=== PATIENT | female | born 1965 | race African-American/Black ===

== ENCOUNTER 2020-10-31 17:21 | Inpatient (IN) | payer MEDICAID, OTHER ==
[~2020-10-31] VITALS: Ht 170.2 cm; Wt 105.7 kg
[2020-10-31] MEDS ORDERED: POTA10TA11 PO (17:41)
[2020-10-31] MEDS ORDERED: AMLO5TAB88 PO (17:41)
[2020-10-31] MEDS ORDERED: TRAZ-251 PO (17:41)
[2020-10-31] MEDS ORDERED: SODIUM CHLORIDE 0.9% 1,000 ML IV ONE (18:00)
[2020-10-31 18:27] LABS: BASOPHILS % 0.8 % (0.0-2.0); EOSINOPHILS % 0.6 % (0.0-5.0); HEMOGLOBIN. 15.9 g/dL (12.0-16.0); LYMPHOCYTES % 37.6 % (20.0-50.0); MEAN CORPUSCULAR HEMOGLOBIN 29.2 pg (28.0-32.0); MEAN CORPUSCULAR VOLUME 82.8 fL (81.0-99.0); MEAN PLATELET VOLUME 7.9 fl (7.4-10.4); MONOCYTES % 9.8 % (2.0-8.0); NEUTROPHILS % 51.2 % (40.0-76.0); PLATELET 320 x1000/uL (130-400); RED BLOOD CELL COUNT 5.44 mill/uL (4.2-5.4); RED CELL DISTRIBUTION WIDTH 16.7 % (11.6-14.6)
[2020-10-31 18:35] LABS: CHLORIDE 94 mEq/L (98-107)
[2020-10-31] MEDS ORDERED: KCL 10MEQ/50ML PREMIX 50 ML IV NR (19:30)
[2020-10-31] MEDS ORDERED: SODIUM CHLORIDE 0.9% 1000ML BAG (SEPSIS BOLUS) IV ONE (19:30)
[2020-10-31] MEDS ORDERED: VANCOMYCIN 1 G PREMIX 200 ML IV NR (19:30)
[2020-10-31] MEDS ORDERED: POTASSIUM CHLORIDE 20MEQ TABLET SR PO NR (19:30)
[2020-10-31] MEDS ORDERED: PIPERACILLIN/TAZ 3.375G PREMIX 50 ML IV ONE (19:30)
[2020-10-31] MEDS ORDERED: PIPERACILLIN/TAZ 3.375G PREMIX 50 ML IV NR (19:45)
[2020-10-31] MEDS ORDERED: SODIUM CHLORIDE 0.9% IV SCH (19:45)
[2020-10-31 20:12] LABS: CLARITY URINE CLEAR (CLEAR); COLOR URINE YELLOW (YELLOW); KETONES URINE TRACE (NEGATIVE); LEUKOCYTE ESTERASE URINE 1+ (NEGATIVE); NITRITE URINE POSITIVE (NEGATIVE); OCCULT BLOOD URINE NEGATIVE (NEGATIVE); PH URINE 7.5 (4.5-8.0); PROTEIN URINE 1+ (NEGATIVE); SPECIFIC GRAVITY URINE 1.012 (1.005-1.030); UROBILINOGEN URINE 0.2 E.U./dL (0.2-1.0)
[2020-10-31 20:13] LABS: INR 1.1; PROTHROMBIN TIME 11.4 sec (9.6-11.0)
[2020-10-31 22:05] VITALS: BP 127/80
[2020-11-01] MEDS: LORAZEPAM 2MG/ML CPJ IV PRN ×2 (00:14→20:44)
[2020-11-01] MEDS: CEFTRIAXONE 1,000 MG in DEXTROSE 5% WATER 50 ML IV SCH (02:03)
[2020-11-01 04:00] VITALS: BP 117/83
[2020-11-01] MEDS ORDERED: INFLUENZA VACCINE 05/PF 0.5 ML SYRINGE IM ONE (06:00)
[2020-11-01 06:27] LABS: BASOPHILS % 0.5 % (0.0-2.0); CHLORIDE 100 mEq/L (98-107); EOSINOPHILS % 2.1 % (0.0-5.0); HEMATOCRIT. 40.1 % (36.0-48.0); HEMOGLOBIN. 13.3 g/dL (12.0-16.0); LYMPHOCYTES % 39.6 % (20.0-50.0); MEAN CORPUSCULAR HEMOGLOBIN 28.3 pg (28.0-32.0); MEAN CORPUSCULAR VOLUME 85.1 fL (81.0-99.0); MEAN PLATELET VOLUME 7.8 fl (7.4-10.4); MONOCYTES % 10.6 % (2.0-8.0); NEUTROPHILS % 47.2 % (40.0-76.0); PLATELET 252 x1000/uL (130-400); RED BLOOD CELL COUNT 4.71 mill/uL (4.2-5.4); RED CELL DISTRIBUTION WIDTH 16.9 % (11.6-14.6)
[2020-11-01] MEDS ORDERED: DEXT 5%/0.45% NACL KCL 40MEQ/L 500 ML IV ONE (06:45)
[2020-11-01] MEDS ORDERED: POTASSIUM CHLORIDE INJ 60 MEQ in DEXT 5% WATER 500 ML IV SCH (07:00)
[2020-11-01 08:00] VITALS: BP 124/78
[2020-11-01] MEDS: AMLODIPINE 5MG TABLET PO SCH (08:44)
[2020-11-01] MEDS ORDERED: CEFTRIAXONE 1 G PREMIX 50 ML IV SCH (09:00)
[2020-11-01 12:00] VITALS: BP 123/85
[2020-11-01] MEDS: POTASSIUM CHLORIDE 20MEQ TABLET SR PO SCH (12:53)
[2020-11-01 16:00] VITALS: BP 120/65
[2020-11-01] MEDS: ENOXAPARIN 30MG/0.3ML SYR SUBCUT SCH (18:49)
[2020-11-01 20:00] VITALS: BP 128/86
[2020-11-01] MEDS: TRAZODONE HCL 50MG TABLET PO SCH (20:43)
[2020-11-02] VITALS: BP 101/73
[2020-11-02] MEDS: CEFTRIAXONE 1,000 MG in DEXTROSE 5% WATER 50 ML IV SCH (01:16)
[2020-11-02 04:00] VITALS: BP 126/84
[2020-11-02] MEDS: ENOXAPARIN 30MG/0.3ML SYR SUBCUT SCH ×2 (05:52→18:01)
[2020-11-02 06:10] LABS: CHLORIDE 101 mEq/L (98-107)
[2020-11-02 08:00] VITALS: BP 118/74
[2020-11-02] MEDS ORDERED: POTASSIUM CHLORIDE INJ 40 MEQ in DEXT 5% WATER 250 ML IV NR (09:00)
[2020-11-02] MEDS: POTASSIUM CHLORIDE 20MEQ TABLET SR PO SCH (09:52)
[2020-11-02] MEDS: AMLODIPINE 5MG TABLET PO SCH (09:52)
[2020-11-02 12:36] VITALS: BP 116/67
[2020-11-02] MEDS ORDERED: LEVO500T89 MT (13:28)
[2020-11-02] MEDS ORDERED: LACT1CAP78 MT (13:28)
[2020-11-02 16:20] VITALS: BP 104/65
[2020-11-02] MEDS: LORAZEPAM 2MG/ML CPJ IV PRN (20:52)
[2020-11-02] MEDS: TRAZODONE HCL 50MG TABLET PO SCH (20:54)
[2020-11-02 23:59] VITALS: BP 98/63
[2020-11-03] MEDS: CEFTRIAXONE 1,000 MG in DEXTROSE 5% WATER 50 ML IV SCH (00:46)
[2020-11-03 04:00] VITALS: BP 93/69
[2020-11-03] MEDS: ENOXAPARIN 30MG/0.3ML SYR SUBCUT SCH ×2 (06:11→17:53)
[2020-11-03 07:59] VITALS: BP 104/68
[2020-11-03] MEDS: AMLODIPINE 5MG TABLET PO SCH (08:15)
[2020-11-03] MEDS: POTASSIUM CHLORIDE 20MEQ TABLET SR PO SCH (08:57)
[2020-11-03 10:15] VITALS: BP 102/68
[2020-11-03 10:19] VITALS: BP 102/68
[2020-11-03 12:00] VITALS: BP 112/64
[2020-11-03 16:00] VITALS: BP 117/72
== END 2020-11-03 18:50 | disposition home or self-care (01) | DRG 720 ==
LOC: ER 17:21 → 6WST 20:06 → EDBEDREQSVC 20:12 → EDBEDREQ 20:12 → EDBEDREQTM 20:12 → ENRESERV 21:09
PROVIDERS: ADMIT Internal Medicine; ATTEND Internal Medicine
DX: A41.9 Sepsis, unspecified organism (principal); E44.1 Mild protein-calorie malnutrition; E87.8 Other disorders of electrolyte and fluid balance, not elsewhere classified; D49.6 Neoplasm of unspecified behavior of brain; E66.9 Obesity, unspecified; E87.6 Hypokalemia; N39.0 Urinary tract infection, site not specified; R19.7 Diarrhea, unspecified; I10 Essential (primary) hypertension; Z79.899 Other long term (current) drug therapy; Z90.49 Acquired absence of other specified parts of digestive tract; Z81.8 Family history of other mental and behavioral disorders; Z68.36 Body mass index [BMI] 36.0-36.9, adult
CPT/HCPCS: 36415; 71045; 80048; 80053; 81003; 82962; 83605; 83735; 84132; 84145; 84484; 85025; 87045; 90686; 93005; 99291; C1893; J0696; J1650; J2060; J2543; J3370; J3480; J7030; J7060

== ENCOUNTER 2020-11-13 09:55 | Inpatient (IN) | payer OTHER ==
[~2020-11-13] VITALS: Ht 167.6 cm; Wt 98.0 kg
[~2020-11-13 09:55] MED LIST: AMLO5TAB88 PO; LACT1CAP78 MT; LEVO500T89 MT; POTA10TA11 PO; TRAZ-251 PO
[2020-11-13 10:55] LABS: BASOPHILS % 1.1 % (0.0-2.0); EOSINOPHILS % 2.6 % (0.0-5.0); HEMATOCRIT. 42.7 % (36.0-48.0); LYMPHOCYTES % 39.2 % (20.0-50.0); MEAN CORPUSCULAR HEMOGLOBIN 28.6 pg (28.0-32.0); MEAN CORPUSCULAR VOLUME 87.4 fL (81.0-99.0); MEAN PLATELET VOLUME 7.2 fl (7.4-10.4); MONOCYTES % 10.8 % (2.0-8.0); NEUTROPHILS % 46.3 % (40.0-76.0); PLATELET 310 x1000/uL (130-400); RED BLOOD CELL COUNT 4.89 mill/uL (4.2-5.4); RED CELL DISTRIBUTION WIDTH 18.5 % (11.6-14.6)
[2020-11-13 11:02] LABS: CHLORIDE 103 mEq/L (98-107)
[2020-11-13 11:06] LABS: ETHANOL BLOOD < 10 mg/dL
[2020-11-13 11:15] LABS: CLARITY URINE TURBID (CLEAR); COLOR URINE DK YELLOW (YELLOW); KETONES URINE 1+ (NEGATIVE); LEUKOCYTE ESTERASE URINE 3+ (NEGATIVE); NITRITE URINE NEGATIVE (NEGATIVE); OCCULT BLOOD URINE NEGATIVE (NEGATIVE); PROTEIN URINE 1+ (NEGATIVE); UROBILINOGEN URINE 0.2 E.U./dL (0.2-1.0)
[2020-11-13 11:56] LABS: *AMPHETAMINES SCREEN URINE NEGATIVE (NEGATIVE); *BARBITURATES SCREEN URINE NEGATIVE (NEGATIVE); *BENZODIAZEPINES SCREEN URINE NEGATIVE (NEGATIVE); *COCAINE SCREEN URINE NEGATIVE (NEGATIVE)
[2020-11-13 11:58] LABS: CANNABINOID URINE SCREEN PRESUMTIVE POSITIVE (NEGATIVE); METHADONE URINE SCREEN NEGATIVE (NEGATIVE); OPIATES URINE SCREEN NEGATIVE (NEGATIVE); PHENCYCLIDINE URINE SCREEN NEGATIVE (NEGATIVE)
[2020-11-13] MEDS ORDERED: CEFTRIAXONE 1 G PREMIX 50 ML IV ONE (13:00)
[2020-11-13] MEDS ORDERED: ACETAMINOPHEN 325MG TABLET PO PRN (14:45)
[2020-11-13] MEDS ORDERED: ONDANSETRON HCL 4MG/2ML INJ IV PRN (14:45)
[2020-11-13] MEDS ORDERED: IPRATROPIUM/ALBUTEROL 0.5-3(2.5)MG/3ML NEB HHN PRN (14:45)
[2020-11-13] MEDS ORDERED: CLONIDINE 0.1MG TABLET PO PRN (14:45)
[2020-11-13] MEDS ORDERED: DIPHENHYDRAMINE 50MG/ML VIAL IV PRN (14:45)
[2020-11-13] MEDS ORDERED: POTASSIUM CHLORIDE INJ 40 MEQ in DEXT 5% WATER 250 ML IV NR (15:30)
[2020-11-13] MEDS: TRAZODONE HCL 50MG TABLET PO SCH (21:21)
[2020-11-13 23:05] VITALS: BP 134/78
[2020-11-14] VITALS: BP 134/78
[2020-11-14 04:00] VITALS: BP 118/85
[2020-11-14 06:56] LABS: BASOPHILS % 0.8 % (0.0-2.0); EOSINOPHILS % 2.8 % (0.0-5.0); HEMATOCRIT. 40.5 % (36.0-48.0); HEMOGLOBIN. 13.5 g/dL (12.0-16.0); LYMPHOCYTES % 41.1 % (20.0-50.0); MEAN CORPUSCULAR HEMOGLOBIN 28.3 pg (28.0-32.0); MEAN CORPUSCULAR VOLUME 85.2 fL (81.0-99.0); MEAN PLATELET VOLUME 7.5 fl (7.4-10.4); MONOCYTES % 10.3 % (2.0-8.0); PLATELET 316 x1000/uL (130-400); RED BLOOD CELL COUNT 4.76 mill/uL (4.2-5.4); RED CELL DISTRIBUTION WIDTH 18.3 % (11.6-14.6)
[2020-11-14 07:17] LABS: CHLORIDE 102 mEq/L (98-107)
[2020-11-14 07:26] LABS: LDL CHOLESTEROL 158 mg/dL (5-100)
[2020-11-14 07:28] LABS: HDL CHOLESTEROL 32 mg/dL (40-59)
[2020-11-14 08:00] VITALS: BP 123/88
[2020-11-14] MEDS: AMLODIPINE 5MG TABLET PO SCH ×4 (09:40→17:21)
[2020-11-14 12:00] VITALS: BP 116/73
[2020-11-14] MEDS ORDERED: NALOXONE HCL 0.4MG/ML VIAL IV PRN (12:00)
[2020-11-14] MEDS ORDERED: IOHEXOL-350 100 ML BOTTLE ONE (14:58)
[2020-11-14] MEDS ORDERED: CEFTRIAXONE 1 G PREMIX 50 ML IV SCH (15:00)
[2020-11-14 16:00] VITALS: BP 129/93
[2020-11-14] MEDS: CEFTRIAXONE 1,000 MG in DEXTROSE 5% WATER 50 ML IV SCH (17:21)
[2020-11-14 20:00] VITALS: BP 120/76
[2020-11-14] MEDS: TRAZODONE HCL 50MG TABLET PO SCH ×2 (20:11→20:13)
[2020-11-14] MEDS: HYDROCODONE/ACETAMINOPHEN 5/325MG TABLET PO PRN (20:19)
[2020-11-15] VITALS: BP 111/70
[2020-11-15 04:00] VITALS: BP 111/76
[2020-11-15 08:00] VITALS: BP 117/82
[2020-11-15] MEDS: AMLODIPINE 5MG TABLET PO SCH ×2 (08:34→16:25)
[2020-11-15] MEDS: HYDROCODONE/ACETAMINOPHEN 5/325MG TABLET PO PRN ×2 (08:40→20:50)
[2020-11-15 12:00] VITALS: BP 104/76
[2020-11-15] MEDS: ARIPIPRAZOLE 5MG TABLET PO SCH (13:18)
[2020-11-15 16:00] VITALS: BP 113/84
[2020-11-15] MEDS: CEFTRIAXONE 1,000 MG in DEXTROSE 5% WATER 50 ML IV SCH (16:25)
[2020-11-15 20:00] VITALS: BP 123/86
[2020-11-15] MEDS: TRAZODONE HCL 50MG TABLET PO SCH (20:44)
[2020-11-15] MEDS: FLUTICASONE PROPIONATE 50MCG/SPRAY BOTTLE BOTHNSTRLS SCH (20:44)
[2020-11-15] MEDS: TEMAZEPAM 15MG CAPSULE PO PRN (20:53)
[2020-11-16] VITALS: BP 130/81
[2020-11-16 04:00] VITALS: BP 126/86
[2020-11-16 06:57] LABS: BASOPHILS % 0.7 % (0.0-2.0); EOSINOPHILS % 4.7 % (0.0-5.0); HEMATOCRIT. 43.3 % (36.0-48.0); HEMOGLOBIN. 14.1 g/dL (12.0-16.0); LYMPHOCYTES % 49.2 % (20.0-50.0); MEAN CORPUSCULAR HEMOGLOBIN 28.3 pg (28.0-32.0); MEAN CORPUSCULAR VOLUME 86.8 fL (81.0-99.0); MEAN PLATELET VOLUME 7.8 fl (7.4-10.4); MONOCYTES % 10.8 % (2.0-8.0); NEUTROPHILS % 34.6 % (40.0-76.0); PLATELET 321 x1000/uL (130-400); RED BLOOD CELL COUNT 4.99 mill/uL (4.2-5.4); RED CELL DISTRIBUTION WIDTH 18.8 % (11.6-14.6)
[2020-11-16 07:06] LABS: CHLORIDE 101 mEq/L (98-107)
[2020-11-16 08:00] VITALS: BP 124/81
[2020-11-16] MEDS: FLUTICASONE PROPIONATE 50MCG/SPRAY BOTTLE BOTHNSTRLS SCH ×2 (08:22→21:17)
[2020-11-16] MEDS: AMLODIPINE 5MG TABLET PO SCH ×2 (08:23→17:02)
[2020-11-16] MEDS: FLUOXETINE HCL 10 MG CAPSULE PO SCH (08:23)
[2020-11-16] MEDS: ARIPIPRAZOLE 5MG TABLET PO SCH (08:23)
[2020-11-16 11:58] VITALS: BP 110/74
[2020-11-16] MEDS: HYDROCODONE/ACETAMINOPHEN 5/325MG TABLET PO PRN ×3 (12:46→21:17)
[2020-11-16 16:00] VITALS: BP 119/80
[2020-11-16] MEDS ORDERED: POTASSIUM CHLORIDE 20MEQ TABLET SR PO NR (16:24)
[2020-11-16] MEDS: CEFTRIAXONE 1,000 MG in DEXTROSE 5% WATER 50 ML IV SCH (17:01)
[2020-11-16 20:00] VITALS: BP 132/58
[2020-11-16] MEDS: TRAZODONE HCL 50MG TABLET PO SCH (21:18)
[2020-11-16] MEDS: TEMAZEPAM 15MG CAPSULE PO PRN (21:18)
[2020-11-17] VITALS: BP_SYST 105; BP_SYST 132; BP_DIAS 58
[2020-11-17 04:00] VITALS: BP 121/85
[2020-11-17 08:00] VITALS: BP 105/61
[2020-11-17] MEDS: FLUTICASONE PROPIONATE 50MCG/SPRAY BOTTLE BOTHNSTRLS SCH ×2 (09:46→21:27)
[2020-11-17] MEDS: ARIPIPRAZOLE 5MG TABLET PO SCH (09:46)
[2020-11-17] MEDS: FLUOXETINE HCL 10 MG CAPSULE PO SCH (09:47)
[2020-11-17] MEDS: AMLODIPINE 5MG TABLET PO SCH ×2 (09:47→17:00)
[2020-11-17] MEDS: HYDROCODONE/ACETAMINOPHEN 5/325MG TABLET PO PRN ×2 (09:48→21:29)
[2020-11-17 12:00] VITALS: BP_SYST 105; BP_SYST 136; BP_DIAS 51; BP_DIAS 79
[2020-11-17] MEDS ORDERED: FLUO10CA28 PO (12:41)
[2020-11-17] MEDS ORDERED: ABIL5 PO (12:41)
[2020-11-17] MEDS ORDERED: ASPI-986 MT (14:34)
[2020-11-17] MEDS ORDERED: COLC0.6C3 MT (14:34)
[2020-11-17 16:00] VITALS: BP 101/72
[2020-11-17 20:00] VITALS: BP 108/68
[2020-11-17] MEDS: TRAZODONE HCL 50MG TABLET PO SCH (21:27)
[2020-11-18] VITALS: BP 105/59
[2020-11-18 04:00] VITALS: BP 105/67
[2020-11-18 07:18] LABS: CHLORIDE 100 mEq/L (98-107)
[2020-11-18 08:00] VITALS: BP 110/58
[2020-11-18] MEDS: FLUOXETINE HCL 10 MG CAPSULE PO SCH (08:05)
[2020-11-18] MEDS: ARIPIPRAZOLE 5MG TABLET PO SCH (08:06)
[2020-11-18] MEDS: AMLODIPINE 5MG TABLET PO SCH ×2 (08:06→17:00)
[2020-11-18] MEDS: FLUTICASONE PROPIONATE 50MCG/SPRAY BOTTLE BOTHNSTRLS SCH ×2 (08:06→20:54)
[2020-11-18 12:00] VITALS: BP 95/56
[2020-11-18] MEDS: HYDROCODONE/ACETAMINOPHEN 5/325MG TABLET PO PRN ×2 (14:08→21:06)
[2020-11-18] MEDS: POTASSIUM CHLORIDE 20MEQ TABLET SR PO SCH ×2 (15:15→15:57)
[2020-11-18] MEDS ORDERED: POTASSIUM CHLORIDE 20MEQ/PACKET PO SCH (15:30)
[2020-11-18 16:00] VITALS: BP 117/70
[2020-11-18 20:00] VITALS: BP 116/70
[2020-11-18] MEDS: TRAZODONE HCL 50MG TABLET PO SCH (20:54)
[2020-11-19] VITALS (7 sets, daily range): BP systolic 110–119; BP diastolic 72–94
[2020-11-19 06:45] LABS: CHLORIDE 102 mEq/L (98-107)
[2020-11-19] MEDS: FLUOXETINE HCL 10 MG CAPSULE PO SCH (08:46)
[2020-11-19] MEDS: ARIPIPRAZOLE 5MG TABLET PO SCH (08:46)
[2020-11-19] MEDS: AMLODIPINE 5MG TABLET PO SCH ×2 (09:03→17:43)
[2020-11-19] MEDS ORDERED: ATOR20TA65 MT (10:19)
[2020-11-19] MEDS ORDERED: POTASSIUM CHLORIDE 20MEQ/PACKET PO NR (11:00)
== END 2020-11-19 20:43 | DRG 45 ==
LOC: ER 09:55 → MICUSO 14:09 → EDBEDREQ 14:11 → EDBEDREQTM 14:11 → 8WST 21:27
PROVIDERS: ADMIT Internal Medicine; ATTEND Internal Medicine
PROC: 4A10X4Z Monitoring of Central Nervous Electrical Activity, External Approach (ICD-10-PCS; principal; 2020-11-15)
DX: I63.9 Cerebral infarction, unspecified (principal); G92.8 Other toxic encephalopathy; E44.1 Mild protein-calorie malnutrition; I31.3 Pericardial effusion (noninflammatory); G93.89 Other specified disorders of brain; F32.0 Major depressive disorder, single episode, mild; R47.01 Aphasia; G81.94 Hemiplegia, unspecified affecting left nondominant side; E78.00 Pure hypercholesterolemia, unspecified; F12.90 Cannabis use, unspecified, uncomplicated; F51.04 Psychophysiologic insomnia; I10 Essential (primary) hypertension; N39.0 Urinary tract infection, site not specified; R26.89 Other abnormalities of gait and mobility; R53.81 Other malaise; R74.01 Elevation of levels of liver transaminase levels; E87.6 Hypokalemia; Z79.82 Long term (current) use of aspirin; Z79.2 Long term (current) use of antibiotics; Z79.899 Other long term (current) drug therapy; Z90.49 Acquired absence of other specified parts of digestive tract; Z68.34 Body mass index [BMI] 34.0-34.9, adult; Z86.69 Personal history of other diseases of the nervous system and sense organs
CPT/HCPCS: 36415; 70496; 71045; 80048; 80053; 80061; 80305; 80320; 81003; 82962; 83735; 84443; 85025; 92523; 92610; 93005; 93306; 93880; 93970; 97116; 97162; 97166; 97530; 97535; 99285; G0378; J0696; J3480; J7040; J7060; Q9967; G0480